=== PATIENT | female | born 1935 | race Caucasian/White ===

== ENCOUNTER 2020-12-03 14:39 | Emergency (ER) | payer OTHER ==
[~2020-12-03] VITALS: Ht 165.1 cm; Wt 76.2 kg
[~2020-12-03 14:39] MED LIST: ACET-503 PO; ASPI-1856 PO; ATEN50TA2 PO; BACL10TA4 PO; DOCU-299 PO; MELA5TAB6 PO; SIMV-34 PO; SYN.1 PO
[2020-12-03 14:50] VITALS: BP 171/63
--- NOTE | 2020-12-03 15:00 | NUR ---
PATIENT AMBULATED WITH WALKER TO BED 3
--- NOTE | 2020-12-03 15:09 | NUR ---
BIB DAUGHTER C/O LEFT UPPER BACK PAIN & BRUISE S/P FALL X TODAY. BLOOD SUGAR 99 AT THIS TIME. PMH:HTN, HLD,DM,THYROID
[2020-12-03] MEDS: KETOROLAC 30 MG/ML VIAL IM ONE (15:18)
[2020-12-03] MEDS ORDERED: IBUP-2213 PO (16:43)
== END 2020-12-03 16:50 | disposition home or self-care (01) ==
LOC: MED 14:39
DX: S20.222A Contusion of left back wall of thorax, initial encounter (principal); M85.80 Other specified disorders of bone density and structure, unspecified site; E11.9 Type 2 diabetes mellitus without complications; I10 Essential (primary) hypertension; E07.9 Disorder of thyroid, unspecified; E78.5 Hyperlipidemia, unspecified; Z79.82 Long term (current) use of aspirin; Z88.0 Allergy status to penicillin; Z79.899 Other long term (current) drug therapy; W01.198A Fall on same level from slipping, tripping and stumbling with subsequent striking against other object, initial encounter; Y93.89 Activity, other specified; Y92.89 Other specified places as the place of occurrence of the external cause; Y99.8 Other external cause status
CPT/HCPCS: 71101; 96372; 99283; J1885

== ENCOUNTER 2020-12-06 12:10 | Emergency (ER) | payer OTHER ==
[~2020-12-06] VITALS: Ht 157.5 cm; Wt 68.0 kg
[~2020-12-06 12:10] MED LIST changes: +IBUP-2213 PO
[2020-12-06 12:15] VITALS: BP 155/69
--- NOTE | 2020-12-06 12:22 | NUR ---
Pt ambulated to ER bed 12 with a steady gait.
--- NOTE | 2020-12-06 12:24 | NUR ---
85 Y/O FEMALE BIB CAREGIVER C/O LEFT RIB PAIN 910 DESCRIBES SHARP WHEN SNEEZING OR COUGHING X3DAYS. PT STATES SHE WAS SEEN 12/03/20 AND XR WAS NEGATIVE, PRESCRIBED MOTRIN WITH NO RELIEF. PT DENIES N/V, DENIES FEVER/CHILLS. PMH: HTN, DM ALLERGIES: PCN
--- NOTE | 2020-12-06 12:32 | NUR ---
Dr. Haddad at pt bedside for further evaluation.
[2020-12-06] MEDS ORDERED: LIDOCAINE 5% 1 EA PATCH TP STA (12:36)
[2020-12-06] MEDS ORDERED: MORPHINE SULFATE 2 MG/ML SYR IM ONE (12:40)
--- NOTE | 2020-12-06 12:51 | NUR ---
PATIENT TAKEN TO CT VIA WHEELCHAIR
[2020-12-06] MEDS ORDERED: LID5T TP (13:59)
[2020-12-06] MEDS ORDERED: DICL1GEL19 TP (13:59)
[2020-12-06] MEDS ORDERED: ACET-9527 PO (13:59)
[2020-12-06 14:13] VITALS: BP 155/69
--- NOTE | 2020-12-06 14:15 | NUR ---
Patient discharged with v/s stable. Written and verbal after care instructions given RIB FRACTURE AND SPINAL COMRPESSION FRACTURE and explained. Patient alert, oriented and verbalized understanding of instructions. Ambulatory with steady gait. All questions addressed prior to discharge. ID band removed. Patient advised to follow up with PMD. Rx of NORCO 5MG-325MG PO HS PRN SEVERE PAIN, VOLTAREN 1GRAM TOPICAL QID PRN PAIN, AND LIDOCAINE PATH TOPICALLY UP TO 12 HRS A08FLYM given. Patient educated on indication of medication including possible reaction and side effects. Opportunity to ask questions provided and answered.
== END 2020-12-06 14:15 | disposition home or self-care (01) ==
LOC: MED 12:10
DX: S22.42XA Multiple fractures of ribs, left side, initial encounter for closed fracture (principal); M48.54XA Collapsed vertebra, not elsewhere classified, thoracic region, initial encounter for fracture; E11.9 Type 2 diabetes mellitus without complications; I10 Essential (primary) hypertension; E07.9 Disorder of thyroid, unspecified; E78.5 Hyperlipidemia, unspecified; Z88.0 Allergy status to penicillin; Z79.82 Long term (current) use of aspirin; Z79.899 Other long term (current) drug therapy; W18.30XA Fall on same level, unspecified, initial encounter; Y93.89 Activity, other specified; Y92.89 Other specified places as the place of occurrence of the external cause; Y99.8 Other external cause status
CPT/HCPCS: 74176; 81002; 96372; 99284; J2270

== ENCOUNTER 2021-02-09 05:20 | Observation (INO) | payer OTHER, SELFPAY ==
[~2021-02-09] VITALS: Ht 165.1 cm; Wt 95.3 kg
[~2021-02-09 05:20] MED LIST changes: +ACET-9527 PO; +DICL1GEL19 TP; +LID5T TP
--- NOTE | 2021-02-09 05:28 | NUR ---
PT BREANNA BLS. TAKEN TO BED 2
--- NOTE | 2021-02-09 05:30 | NUR ---
85 Y/O BIBA C/O HEAD PRESSURE, NOSE PRESSURE AND HIGH BLOOD PRESSURE OF 199/100. PER EMS, BP WAS RECHECKED 5 MINS PRIOR TO ARRIVAL, IT WAS 178/80. BP AT BEDSIDE: 147/73. PT IS WALKING WITH MINIMAL ASSISTANCE. A&OX4, GCS 15. PMH: DM, HTN, HLD ALLERGIES: PENICILLIN
[2021-02-09 05:42] VITALS: BP 147/73
--- NOTE | 2021-02-09 06:08 | NUR ---
Dr. Erickson examining patient.
[2021-02-09] MEDS ORDERED: NACL 0.9% 1,000 ML IV ONE (06:10)
[2021-02-09 06:25] LABS: BASOPHILS % (AUTO) 0.8 % (0.0-2.0); EOSINOPHILS # (AUTO) 0.1 K/uL (0-0.4); EOSINOPHILS % (AUTO) 1.4 % (0.0-4.0); HEMATOCRIT 37.8 % (36-48); HEMOGLOBIN 12.8 g/dL (12.0-16.0); LYMPHOCYTES # (AUTO) 1.4 K/uL (2.5-16.5); LYMPHOCYTES % (AUTO) 24.2 % (20.5-51.1); MEAN CORPUSCULAR HEMOGLOBIN 33 pg (27-31); MEAN CORPUSCULAR HGB CONC 34 g/dL (33-37); MEAN CORPUSCULAR VOLUME 96.1 fL (80-94); MONOCYTES # (AUTO) 0.5 K/uL (0.8-1.0); MONOCYTES % (AUTO) 9.2 % (1.7-9.3); NEUTROPHILS # (AUTO) 3.7 K/uL (1.8-7.7); NEUTROPHILS % (AUTO) 64.4 % (42.2-75.2); PLATELET COUNT (AUTO) 200 K/uL (140-450); RED BLOOD CELL COUNT(AUTO) 3.94 MIL/uL (4.20-5.40); RED CELL DISTRIBUTION WIDTH 14.7 % (11.6-13.7); WHITE BLOOD COUNT (AUTO) 5.8 K/uL (4.8-10.8)
[2021-02-09 06:42] LABS: APPEARANCE,URINE CLEAR (CLEAR); BILIRUBIN,URINE NEGATIVE (NEGATIVE); BLOOD, URINE TRACE-I (NEGATIVE); COLOR,URINE YELLOW (YELLOW); LEUKOCYTE ESTERASE ,URINE NEGATIVE (NEGATIVE); NITRITE, URINE NEGATIVE (NEGATIVE); PH,URINE 6.5 (5.0-9.0); UGLUCOSE NEGATIVE (NEGATIVE)
[2021-02-09 06:44] LABS: ALBUMIN 3.6 g/dL (3.4-5.0); ANION GAP 13.6 (8-16); ASPARTATE AMINOTRANSFERASE 24 U/L (15-37); CARBON DIOXIDE 24.7 mmol/L (21-32); CHLORIDE 105 mmol/L (98-107); CREATININE 0.8 mg/dL (0.6-1.3); GLUCOSE 137 mg/dL (74-106); LIPASE 105 U/L (73-393); POTASSIUM 4.3 mmol/L (3.5-5.1); SODIUM SERUM 139 mmol/L (136-145); TOTAL BILIRUBIN 0.4 mg/dL (0.0-1.0); UREA NITROGEN, BLOOD 12 mg/dL (7-18)
--- NOTE | 2021-02-09 06:50 | NUR ---
VIK COMPLETED AND TAKEN TO LAB
[2021-02-09 06:58] LABS: RBC,URINE 0-5 /HPF (0-5); WBC,URINE 0-5 /HPF (0-5)
--- NOTE | 2021-02-09 06:58 | NUR ---
XRAY AT BEDSIDE.
[2021-02-09] MEDS ORDERED: ASPIRIN 325 MG TAB PO ONE (07:05)
--- NOTE | 2021-02-09 07:16 | NUR ---
REPORT GIVEN TO DU SALMON. TRANSFER OF CARE AT THIS TIME
--- NOTE | 2021-02-09 07:18 | NUR ---
ASSUMED CARE OF THIS PATIENT, REPORT RECEIVED FROM ION SANDY. AT THIS TIME PT DENIES N/V/D; SKIN IS INTACT, PINK/WARM/DRY; AAOX4, ROMANIAN SPEAKING. LUNGS CLEAR BL, BREATHING UNLABORED; HR EVEN AND REGULAR BS ACTIVE X4, NO TENDERNESS TO PALPATION, ; PT DENIES ANY CP, SOB, OR COUGH AT THIS TIME; PT STATES 0/10 PAIN AT THIS TIME; VSS; PATIENT POSITIONED FOR COMFORT; HOB ELEVATED; BEDRAILS UP X2; BED DOWN. AREA SUPERVISOR IN PLACE SHOWING NORMAL SINUS RHYTHM.
--- NOTE | 2021-02-09 07:45 | NUR ---
DR TODD AT BEDSIDE DISCUSSING PLAN OF CARE WITH GARETH SANDY TRANSLATING. PATIENT TO BE ADMITTED FOR FUTHER EVAL AND TREATMENT.
[2021-02-09] MEDS: NACL 0.9% 1,000 ML IV SCH ×3 (07:50→20:20)
[2021-02-09] MEDS ORDERED: MORPHINE SULFATE 2 MG/ML SYR IVP PRN (07:50)
[2021-02-09] MEDS ORDERED: LORazepam 2 MG/ML VIAL IVP PRN (07:50)
[2021-02-09] MEDS ORDERED: HYDROcodone/APAP 5/325 MG 1 TAB TAB PO PRN (07:50)
[2021-02-09] MEDS ORDERED: ACETAMINOPHEN 325 MG TAB PO PRN (07:50)
[2021-02-09] MEDS ORDERED: NITROGLYCERIN 0.4 MG TAB SL PRN (07:50)
[2021-02-09] MEDS ORDERED: ONDANSETRON 4 MG/2 ML VIAL IVP PRN (07:50)
[2021-02-09] MEDS ORDERED: ZOLPIDEM 5 MG TAB PO PRN (07:50)
--- NOTE | 2021-02-09 07:53 | NUR ---
SPOKE WITH PT DAUGHTER HARSHAL WITH PT CONSENT FOR UPDATES.
--- NOTE | 2021-02-09 07:59 | NUR ---
SPOKE WITH PT FAMILY, DARRIN WITH PT CONSENT FOR UPDATES.
[2021-02-09] MEDS ORDERED: LOSA100T1 PO (08:22)
[2021-02-09] MEDS ORDERED: LORA10TA19 PO (08:22)
[2021-02-09] MEDS ORDERED: OMEP20EC11 PO (08:22)
[2021-02-09] MEDS ORDERED: BUS5 PO (08:22)
[2021-02-09] MEDS: METOPROLOL 25 MG TAB PO SCH ×2 (09:00→21:27)
--- NOTE | 2021-02-09 09:03 | NUR ---
RESTING QUIETLY, DAUGHTER AT SIDE, AWAITING INPATIENT BED. REQUESTING UPPER SORBIAN SPEAKING NURSE TO ANSWER QUESTIONS. GARETH SANDY IN TO TRANSLATE.
--- NOTE | 2021-02-09 10:00 | NUR ---
REPEAT LACTIC AND TROPONIN DRAWN BY TECH.
[2021-02-09] MEDS: ENOXAPARIN 40 MG/0.4 ML SYR SUBQ SCH (10:13)
[2021-02-09] MEDS: CLINICAL MONITORING MC SCH (10:29)
--- NOTE | 2021-02-09 11:06 | NUR ---
PATIENT C/O HUNGER, LIGHT CARDIAC MEAL PROVIDED.
--- NOTE | 2021-02-09 12:11 | NUR ---
assisted patient to BR voided 220 cc, back to bed via w/c.
--- NOTE | 2021-02-09 13:39 | NUR ---
RESTING QUIETLY WITH CENTRIFUGE OPERATOR IN PLACE, SHOWING NORMAL SINUS RHYTHM, PATIENT HAS EYES CLOSED, RESP EVEN AND UNLABORED. IV INFUSION OF NORMAL SALINE @80ML/HR CONTINUES. AWAITS INPATIENT BED.
--- NOTE | 2021-02-09 14:08 | NUR ---
BEDSIDE ECHO IN PROGRESS.
--- NOTE | 2021-02-09 15:56 | NUR ---
DAUGHTER VISITING. CARDIAC MONITORING CONTINUES, NSR NOTED, OCC UNIFOCAL PVCS. PATIENT DENIES PAIN, SMILING.
--- NOTE | 2021-02-09 16:18 | NUR ---
UP TO BR VIA W/C, DAUGHTER ASSISTED. VOIDED QS, UNABLE TO MEASURE. IVF CONT TO INFUSE AT 80ML/HR, SITE CLEAR.
--- NOTE | 2021-02-09 17:45 | NUR ---
DEE SANDY HERE TO TRANSPORT PATIENT TO TELE. REPORT PROVIDED.
--- NOTE | 2021-02-09 18:07 | NUR ---
RECEIVED PT FROM ER PATIENT ALERT, AWAKE ORIENTED, NO C/O PAIN AT THIS TIME, NO VOMITTING NOTED, FAMILY AT BEDSIDE, GEORGIAN SPEAKING ONLY, BODY ASSESSMENT DONE, MULTIPLE DISCOLORATION BROWNISH, BLACKISH ON BOTH LOWER EXTREMITIES, CALL LIGHT WITHIN EASY REACH, FALL RISK BAND IN PLACE, PT ALLERGIC TO PENICILLIN.
[2021-02-09 18:19] VITALS: BP 161/79
--- NOTE | 2021-02-09 18:21 | NUR ---
DR LUTHER AT BEDSIDE
--- NOTE | 2021-02-09 19:45 | NUR ---
RECEIVED REPORT FROM AM NURSE. PATIENT IS AAOX4 MACEDONIAN SPEAKING. NO S/S OF RESPIRATORY DISTRESS. AFEBRILE. ALL SAFETY PRECAUTIONS IN PLACE. WILL CONTINUE TO MONITOR. Addendum: 02/21/21 at 1912 by Maria De Jesus Huff RN RN DEVAN GRIGSBY
--- NOTE | 2021-02-09 21:27 | NUR ---
MEDICATIONS GIVEN ORDERED.
[2021-02-10] VITALS: BP 123/68
[2021-02-10] MEDS: NACL 0.9% 1,000 ML IV SCH ×2 (03:22→08:50)
[2021-02-10 04:00] VITALS: BP 154/71
--- NOTE | 2021-02-10 05:00 | NUR ---
PATIENT IS ASLEEP. NO SOB NOTED AT THIS TIME. CALL LIGHT WITHIN REACH.
[2021-02-10 06:05] LABS: BASOPHILS % (AUTO) 0.5 % (0.0-2.0); EOSINOPHILS # (AUTO) 0.2 K/uL (0-0.4); EOSINOPHILS % (AUTO) 2.9 % (0.0-4.0); HEMATOCRIT 35.2 % (36-48); LYMPHOCYTES # (AUTO) 2.2 K/uL (2.5-16.5); LYMPHOCYTES % (AUTO) 41.4 % (20.5-51.1); MEAN CORPUSCULAR HEMOGLOBIN 33 pg (27-31); MEAN CORPUSCULAR HGB CONC 34 g/dL (33-37); MEAN CORPUSCULAR VOLUME 97.1 fL (80-94); MONOCYTES # (AUTO) 0.5 K/uL (0.8-1.0); MONOCYTES % (AUTO) 10.5 % (1.7-9.3); NEUTROPHILS # (AUTO) 2.4 K/uL (1.8-7.7); NEUTROPHILS % (AUTO) 44.7 % (42.2-75.2); PLATELET COUNT (AUTO) 194 K/uL (140-450); RED BLOOD CELL COUNT(AUTO) 3.63 MIL/uL (4.20-5.40); RED CELL DISTRIBUTION WIDTH 14.8 % (11.6-13.7); WHITE BLOOD COUNT (AUTO) 5.3 K/uL (4.8-10.8)
[2021-02-10 06:42] LABS: ALBUMIN 3.1 g/dL (3.4-5.0); ANION GAP 10.6 (8-16); ASPARTATE AMINOTRANSFERASE 21 U/L (15-37); CARBON DIOXIDE 26.4 mmol/L (21-32); CHLORIDE 111 mmol/L (98-107); CREATININE 0.6 mg/dL (0.6-1.3); GLUCOSE 101 mg/dL (74-106); MAGNESIUM 1.8 mg/dL (1.8-2.4); SODIUM SERUM 144 mmol/L (136-145); TOTAL BILIRUBIN 0.4 mg/dL (0.0-1.0); UREA NITROGEN, BLOOD 10 mg/dL (7-18)
--- NOTE | 2021-02-10 07:40 | NUR ---
RECEIVED BEDSIDE REPORT FROM CALL CENTER SUPPORT CONSULTANT NURSE FOR CONTINUITY OF CARE. PT IS AOX4, NEPALI SPEAKING AND ABLE TO MAKE NEEDS KNOWN. RESPIRATIONS EVEN AND UNLABORED. ON ROOM AIR AND NO S/S OF DISTRESS NOTED. SKIN IS WARM, DRY, AND INTACT. IV SITE ON LAC 22 G INFUSING NS 80 ML/HR. IV INTACT AND PATENT. PATIENT DENIES PAIN AT THE MOMENT. PLAN OF CARE DISCUSSED. SAFETY PRECAUTIONS IN PLACE. BED IN LOW POSITION. CALL LIGHT WITHIN REACH. WILL CONTINUE TO MONITOR.
[2021-02-10 08:00] VITALS: BP 159/63
--- NOTE | 2021-02-10 08:19 | NUR ---
PATIENT HAS BEEN SCREENED AND CATEGORIZED LOW NUTRITION RISK. PATIENT WILL BE SEEN WITHIN 7 DAYS OF ADMISSION. 02/16/[address]
[2021-02-10] MEDS ORDERED: ASPIRIN 81 MG TAB.CHEW PO SCH (09:00)
[2021-02-10] MEDS: METOPROLOL 25 MG TAB PO SCH (09:48)
[2021-02-10] MEDS: CLINICAL MONITORING MC SCH (09:48)
[2021-02-10] MEDS: ENOXAPARIN 40 MG/0.4 ML SYR SUBQ SCH (09:49)
--- NOTE | 2021-02-10 10:00 | NUR ---
ALL SCHEDULED MEDICATIONS GIVEN. PT IS STABLE. NO DISTRESS NOTED. WILL CONTINUE TO MONITOR.
--- NOTE | 2021-02-10 11:45 | NUR ---
RECEIVED NEW DISCHARGE ORDERS FROM MD. ACCORDING TO DR. ROJAS, CUTTING ROOM SUPERVISOR HAS CLEARED PATIENT FOR DISCHARGE. WILL NOTIFY PATIENT.
[2021-02-10 13:12] VITALS: BP 159/63
--- NOTE | 2021-02-10 13:15 | NUR ---
ENDORSED DISCHARGE INSTRUCTIONS TO PATIENT. PATIENT VERBALIZED UNDERSTANDING AND SIGNED DISCHARGE FORMS.
--- NOTE | 2021-02-10 13:39 | NUR ---
PATIENT DISCHARGED OFF THE UNIT. IV CATH AND ID WRIST BAND REMOVED. PATIENT WHEELED TO THE FRONT LOBBY AND PICKED UP BY CAREGIVER AT THE FRONT LOBBY. PT IS STABLE PRIOR TO DISCHARGE.
== END 2021-02-10 13:40 | disposition home or self-care (01) ==
LOC: MED 05:20 → MTU 07:52
PROVIDERS: ADMIT Hospitalist; ATTEND Hospitalist
DX: R77.8 Other specified abnormalities of plasma proteins (principal); Z20.822 Contact with and (suspected) exposure to COVID-19; R53.1 Weakness; R53.81 Other malaise; I10 Essential (primary) hypertension; M51.36 Other intervertebral disc degeneration, lumbar region; E11.9 Type 2 diabetes mellitus without complications; E03.9 Hypothyroidism, unspecified; K21.9 Gastro-esophageal reflux disease without esophagitis; Z79.82 Long term (current) use of aspirin; Z79.899 Other long term (current) drug therapy
CPT/HCPCS: 36415; 71045; 80053; 81001; 82550; 82553; 83605; 83690; 83735; 84484; 85025; 87040; 87081; 87426; 93005; 93307; 96360; 96361; 96372; 99285; G0378; J1650

== ENCOUNTER 2021-03-27 18:24 | Emergency (ER) | payer OTHER, SELFPAY ==
[~2021-03-27 18:24] MED LIST changes: -ACET-9527 PO; -ASPI-1856 PO; -BACL10TA4 PO; +BUS5 PO; -DOCU-299 PO; -LID5T TP; +LORA10TA19 PO; +LOSA100T1 PO; +OMEP20EC11 PO; -SIMV-34 PO
--- NOTE | 2021-03-27 19:15 | NUR ---
PT CALLED INSIDE AND OUTSIDE. NO ANSWER.
--- NOTE | 2021-03-27 19:49 | NUR ---
PT CALLED IN LOBBY AND OUTSIDE. NO ANSWER.
--- NOTE | 2021-03-27 20:03 | NUR ---
PATIENT LEFT WITHOUT BEING SEEN BY DR. ARIAS. NO FURTHER CARE PROVIDED FOR PATIENT.
[2021-03-27] MEDS ORDERED: ONDA8TAB87 PO (23:22)
== END 2021-03-27 19:15 | disposition left against medical advice (07) ==
LOC: MED 18:24
DX: Z53.21 Procedure and treatment not carried out due to patient leaving prior to being seen by health care provider (principal)

== ENCOUNTER 2021-03-27 22:05 | Emergency (ER) | payer OTHER ==
[~2021-03-27] VITALS: Ht 157.5 cm; Wt 73.0 kg
[2021-03-27 22:20] VITALS: BP 181/77
--- NOTE | 2021-03-27 22:30 | NUR ---
nausea starting last night. patient having chills and shakiness. denies any pain. denies having anyone sick in the family. patient can eat but feels nauseous. pmh: htn, arthritis, dm allergies: pencillins
[2021-03-27] MEDS ORDERED: ONDANSETRON 4 MG ODT PO ONE (22:40)
--- NOTE | 2021-03-27 22:41 | NUR ---
patient urinated, collected and sent patient to [facility]
--- NOTE | 2021-03-27 22:45 | NUR ---
PT TAKEN TO BED 8
[2021-03-27] MEDS ORDERED: ONDA8TAB87 PO (23:22)
[2021-03-27 23:50] VITALS: BP 181/77
== END 2021-03-27 23:50 | disposition home or self-care (01) ==
LOC: MED 22:05
DX: R11.0 Nausea (principal); E11.9 Type 2 diabetes mellitus without complications; I10 Essential (primary) hypertension; E07.9 Disorder of thyroid, unspecified; Z88.0 Allergy status to penicillin; Z79.899 Other long term (current) drug therapy
CPT/HCPCS: 81002; 82948; 99283; Q0162

== ENCOUNTER 2022-02-10 18:34 | Emergency (ER) | payer OTHER ==
[~2022-02-10] VITALS: Ht 157.5 cm; Wt 68.0 kg
[~2022-02-10 18:34] MED LIST changes: +ONDA8TAB87 PO
[2022-02-10 18:44] VITALS: BP 150/84
--- NOTE | 2022-02-10 20:23 | NUR ---
PT TO BED #11
--- NOTE | 2022-02-10 21:11 | NUR ---
86 Y/O FEMALE C/O OF RIGHT LEG PAIN, BELOW THE [id number]. DENIES ANY TRAUMA OR INJURY, DENIES ANY NUMBNESS OR TINGGLING IN THE AREA. NO REDNESS, BRUISING, OR OR DEFORMITY. A/OX4, UNLABORED BREATHING, AND CALM DEMEANOR. ALLERGY: PCN PMH: DM, HTN Addendum: 02/10/22 at 2155 by [email or web address] UPON FUTHER EXAM, PT STATES SHE WAS GETTINGINTO HER CAR ON FRIDAY. WHEN LIFTING HER RIGHT LEG SHE FELT A PAIN IN HER LEFT KNEE 03/23. PT STATES SHE TOOK 800MG IBUPROFEN THIS MORNING AT 1000 W/ NO RELIEF.
--- NOTE | 2022-02-10 21:50 | NUR ---
DR MANUEL EXAMINING PT
[2022-02-10] MEDS ORDERED: KETOROLAC 60 MG/2 ML VIAL IM ONE (21:55)
--- NOTE | 2022-02-10 22:00 | NUR ---
ULTRASOUND AT BEDSIDE
[2022-02-10] MEDS ORDERED: NAPR-54 PO (22:43)
[2022-02-10 23:12] VITALS: BP 145/80
--- NOTE | 2022-02-10 23:13 | NUR ---
Patient discharged with v/s stable. Written and verbal after care instructions given and explained. Patient alert, oriented and verbalized understanding of instructions. Wheel Chair Assisted with to car. All questions addressed prior to discharge. ID band removed. Patient advised to follow up with PMD. Rx of NAPROSYN given. Patient educated on indication of medication including possible reaction and side effects. Opportunity to ask questions provided and answered. VSS, A/OX4, UNLABORED BREATYHING, AMBULATORY, AND CALM DEMEANOR.
[2022-02-11] MEDS ORDERED: NAPR-54 PO (13:03)
== END 2022-02-10 23:06 | disposition home or self-care (01) ==
LOC: MED 18:34
DX: S83.91XA Sprain of unspecified site of right knee, initial encounter (principal); I10 Essential (primary) hypertension; E07.9 Disorder of thyroid, unspecified; Z88.0 Allergy status to penicillin; Z79.899 Other long term (current) drug therapy; X58.XXXA Exposure to other specified factors, initial encounter; Y93.89 Activity, other specified; Y92.89 Other specified places as the place of occurrence of the external cause; Y99.8 Other external cause status
CPT/HCPCS: 81002; 93971; 96372; 99284; J1885; Q0092

== ENCOUNTER 2023-02-27 19:11 | Emergency (ER) | payer OTHER ==
[~2023-02-27] VITALS: Ht 162.6 cm; Wt 76.2 kg
[~2023-02-27 19:11] MED LIST changes: -LOSA100T1 PO; +LOSA100T2 PO; +NAPR-54 PO
[2023-02-27 19:42] VITALS: BP 154/71; PULSE 95; RESP 22; TEMP 100; O2SAT 94
[2023-02-27 20:21] LABS: BASOPHILS % (AUTO) 0.5 % (0.0-2.0); EOSINOPHILS # (AUTO) 0.1 K/uL (0-0.4); EOSINOPHILS % (AUTO) 1.6 % (0.0-4.0); HEMATOCRIT 36.4 % (36-48); LYMPHOCYTES # (AUTO) 1.2 K/uL (2.5-16.5); LYMPHOCYTES % (AUTO) 15.8 % (20.5-51.1); MEAN CORPUSCULAR HEMOGLOBIN 30 pg (27-31); MEAN CORPUSCULAR HGB CONC 33 g/dL (33-37); MEAN CORPUSCULAR VOLUME 92.5 fL (80-94); MONOCYTES # (AUTO) 0.8 K/uL (0.8-1.0); MONOCYTES % (AUTO) 10.8 % (1.7-9.3); NEUTROPHILS # (AUTO) 5.3 K/uL (1.8-7.7); NEUTROPHILS % (AUTO) 71.3 % (42.2-75.2); PLATELET COUNT (AUTO) 182 K/uL (140-450); RED BLOOD CELL COUNT(AUTO) 3.93 MIL/uL (4.20-5.40); RED CELL DISTRIBUTION WIDTH 15.3 % (11.6-13.7); WHITE BLOOD COUNT (AUTO) 7.4 K/uL (4.8-10.8)
[2023-02-27 20:49] LABS: ALANINE AMINOTRANSFERASE 20 U/L (12-78); ALBUMIN 3.5 g/dL (3.4-5.0); ALKALINE PHOSPHATASE 104 U/L (50-136); ANION GAP 14.3 (8-16); ASPARTATE AMINOTRANSFERASE 24 U/L (15-37); CALCIUM 8.7 mg/dL (8.5-10.1); CARBON DIOXIDE 24.5 mmol/L (21-32); CHLORIDE 106 mmol/L (98-107); CREATININE 0.8 mg/dL (0.6-1.3); GLUCOSE 132 mg/dL (74-106); LIPASE 37 U/L (73-393); POTASSIUM 3.8 mmol/L (3.5-5.1); SODIUM SERUM 141 mmol/L (136-145); TOTAL BILIRUBIN 0.3 mg/dL (0.0-1.0); TOTAL PROTEIN, SERUM 7.2 g/dL (6.4-8.2); UREA NITROGEN, BLOOD 12 mg/dL (7-18)
[2023-02-27 20:55] LABS: FLU A ANTIGEN negative (NEGATIVE); FLU B ANTIGEN negative (NEGATIVE)
[2023-02-27] MEDS ORDERED: DOXY-690 PO (22:32)
[2023-02-27 23:00] VITALS: BP 154/71; PULSE 95; RESP 22; TEMP 100; O2SAT 94
== END 2023-02-27 23:00 | disposition home or self-care (01) ==
LOC: MED 19:11
DX: J18.9 Pneumonia, unspecified organism (principal); R07.89 Other chest pain; E11.9 Type 2 diabetes mellitus without complications; I10 Essential (primary) hypertension; E07.9 Disorder of thyroid, unspecified; Z79.899 Other long term (current) drug therapy; Z20.822 Contact with and (suspected) exposure to COVID-19
CPT/HCPCS: 36415; 71045; 80053; 83690; 84484; 85025; 93005; 99285

== ENCOUNTER 2024-02-19 12:33 | Emergency (ER) | payer OTHER ==
[~2024-02-19] VITALS: Ht 157.5 cm; Wt 64.4 kg
[~2024-02-19 12:33] MED LIST changes: +DOXY-690 PO; +LOSA-272 PO; -LOSA100T2 PO; -MELA5TAB6 PO; +MELA5TAB68 PO; +NAPR-337 PO; -NAPR-54 PO
[2024-02-19 12:39] VITALS: BP 174/56; PULSE 59; RESP 14; TEMP 98.8; O2SAT 95
[2024-02-19 13:00] VITALS: O2SAT 95
[2024-02-19 13:09] VITALS: BP 172/64; PULSE 59; RESP 14; TEMP 98.8; O2SAT 95
[2024-02-19] MEDS: ACETAMINOPHEN 325 MG TAB PO ONE (13:31)
[2024-02-19 13:33] LABS: BASOPHILS % (AUTO) 0.6 % (0.0-2.0); EOSINOPHILS # (AUTO) 0.3 K/uL (0-0.4); EOSINOPHILS % (AUTO) 5.1 % (0.0-4.0); HEMOGLOBIN 11.7 g/dL (12.0-16.0); LYMPHOCYTES # (AUTO) 2.8 K/uL (2.5-16.5); LYMPHOCYTES % (AUTO) 42.1 % (20.5-51.1); MEAN CORPUSCULAR HEMOGLOBIN 31 pg (27-31); MEAN CORPUSCULAR HGB CONC 32 g/dL (33-37); MEAN CORPUSCULAR VOLUME 96.8 fL (80-94); MONOCYTES # (AUTO) 0.6 K/uL (0.8-1.0); MONOCYTES % (AUTO) 9.8 % (1.7-9.3); NEUTROPHILS # (AUTO) 2.8 K/uL (1.8-7.7); NEUTROPHILS % (AUTO) 42.4 % (42.2-75.2); PLATELET COUNT (AUTO) 215 K/uL (140-450); RED BLOOD CELL COUNT(AUTO) 3.82 MIL/uL (4.20-5.40); RED CELL DISTRIBUTION WIDTH 14.6 % (11.6-13.7); WHITE BLOOD COUNT (AUTO) 6.6 K/uL (4.8-10.8)
[2024-02-19 13:41] LABS: ANION GAP 12.7 (8-16); CARBON DIOXIDE 27.3 mmol/L (21-32); CHLORIDE 98 mmol/L (98-107); CREATININE 0.8 mg/dL (0.6-1.3); GLUCOSE 122 mg/dL (74-106); SODIUM SERUM 134 mmol/L (136-145); UREA NITROGEN, BLOOD 19 mg/dL (7-18)
[2024-02-19 13:45] LABS: ALBUMIN 3.4 g/dL (3.4-5.0); BILIRUBIN,DIRECT 0.1 mg/dL (0.0-0.3); TOTAL BILIRUBIN 0.4 mg/dL (0.0-1.0); TOTAL PROTEIN, SERUM 6.7 g/dL (6.4-8.2)
[2024-02-19 14:37] LABS: APPEARANCE,URINE SLIGHTLY HAZY (CLEAR); BILIRUBIN,URINE NEGATIVE (NEGATIVE); BLOOD, URINE NEGATIVE (NEGATIVE); COLOR,URINE YELLOW (YELLOW); LEUKOCYTE ESTERASE ,URINE 1+ (NEGATIVE); NITRITE, URINE NEGATIVE (NEGATIVE); PROTEIN,URINE NEGATIVE (NEGATIVE); UGLUCOSE NEGATIVE (NEGATIVE); UROBILINOGEN,URINE 0.2 EU/dL (0.2 - 1)
[2024-02-19 14:41] LABS: BACTERIA,URINE 1+ /HPF (None Seen); MUCUS,URINE None Seen /LPF (None Seen); RBC,URINE 0 /HPF (0-5); SQUAMOUS EPITHELIAL CELL,UR 0-3 (FEW) /LPF (0-3 (FEW)); WBC,URINE 0-5 /HPF (0-5)
== END 2024-02-19 16:43 | disposition home or self-care (01) ==
LOC: MED 12:33
DX: S09.90XA Unspecified injury of head, initial encounter (principal); R42 Dizziness and giddiness; M54.2 Cervicalgia; M25.562 Pain in left knee; E11.9 Type 2 diabetes mellitus without complications; I10 Essential (primary) hypertension; E78.5 Hyperlipidemia, unspecified; Z86.39 Personal history of other endocrine, nutritional and metabolic disease; Z79.899 Other long term (current) drug therapy; Z88.0 Allergy status to penicillin; W20.8XXA Other cause of strike by thrown, projected or falling object, initial encounter; Y93.89 Activity, other specified; Y92.89 Other specified places as the place of occurrence of the external cause; Y99.8 Other external cause status
CPT/HCPCS: 36415; 70450; 72125; 73562; 80048; 80076; 81001; 85025; 87086; 93005; 99285